=== PATIENT | male | born 1995 | race Caucasian/White ===

== ENCOUNTER 2019-10-13 17:24 | Emergency (ER) | payer OTHER ==
[~2019-10-13] VITALS: Ht 182.9 cm; Wt 81.7 kg
[2019-10-13] MEDS ORDERED: NAPROSYN500 MG PO (19:09)
[2019-10-13 19:40] VITALS: BP 128/68
== END 2019-10-13 19:41 | disposition home or self-care (01) ==
LOC: ER 17:24
DX: S16.1XXA Strain of muscle, fascia and tendon at neck level, initial encounter (principal); S20.212A Contusion of left front wall of thorax, initial encounter; S00.81XA Abrasion of other part of head, initial encounter; F12.90 Cannabis use, unspecified, uncomplicated; R42 Dizziness and giddiness; Z72.0 Tobacco use; V49.3XXA Car occupant (driver) (passenger) injured in unspecified nontraffic accident, initial encounter; Y93.89 Activity, other specified; Y92.89 Other specified places as the place of occurrence of the external cause; Y99.8 Other external cause status